=== PATIENT | female | born 1970 | race Caucasian/White ===

== ENCOUNTER 2021-09-23 15:56 | Inpatient (IN) | payer SELFPAY | END 2021-09-25 13:55 | disposition home or self-care (01) | DRG 373 | LOC: FMS 15:56 | PROVIDERS: ADMIT Internal Medicine | PROC: 0D9J3ZZ Drainage of Appendix, Percutaneous Approach (ICD-10-PCS; principal; 2021-09-24) | DX: K35.33 Acute appendicitis with perforation, localized peritonitis, and gangrene, with abscess (principal); D50.9 Iron deficiency anemia, unspecified; E88.09 Other disorders of plasma-protein metabolism, not elsewhere classified; Z20.822 Contact with and (suspected) exposure to COVID-19; F17.210 Nicotine dependence, cigarettes, uncomplicated; Z90.49 Acquired absence of other specified parts of digestive tract; Z98.890 Other specified postprocedural states; Z82.49 Family history of ischemic heart disease and other diseases of the circulatory system; Z90.12 Acquired absence of left breast and nipple ==

== ENCOUNTER → 2021-11-03 | Day surgery (SDC) | payer OTHER ==
[~2021-11-03] VITALS: Ht 177.8 cm; Wt 97.5 kg
[~2021-11-03] MED LIST: ACETAMINOPHEN500 M1 PO; AUGMENTIN 875-1 EACH PO; COLACE100 MG PO; IBUPROFEN800 MG PO; MOTRIN600 MG PO; NORCO 5-325 TA1 EACH PO; OXY-IR 5MG5 MG PO; POLY-IRON150 MG PO; ZOFRAN4 MG PO
[2021-11-03 10:20] LABS: HCT 40.7 % (37.0-47.0); HGB 13.4 g/dl (12.5-16.0); MCH 30.6 pg (25.0-31.0); MCHC 32.9 g/dL (32.0-36.0); MCV 92.9 fL (78.0-100.0); MPV 10.1 fL (6.0-9.5); RBC 4.38 M/uL (4.20-5.40); RDW 17.3 % (11.5-14.0); WBC 5.3 K/uL (4.0-10.5)
[2021-11-03 10:48] LABS: ALBUMIN 3.4 g/dL (3.4-5.0); BILIRUBIN - TOTAL 0.6 mg/dL (0.2-1.0); BUN/CREAT RATIO (CALC) 11.9 RATIO; CREATININE 0.59 mg/dL (0.51-0.95); GLOBULIN (CALCULATION) 3.4 g/dL; TOTAL PROTEIN 6.8 g/dL (6.4-8.2)
== END | disposition home or self-care (01) ==
LOC: FAS 08:49
PROVIDERS: Student in an Organized Health Care Education/Training Program
DX: K35.32 Acute appendicitis with perforation, localized peritonitis, and gangrene, without abscess (principal); K38.2 Diverticulum of appendix; K66.0 Peritoneal adhesions (postprocedural) (postinfection); F17.210 Nicotine dependence, cigarettes, uncomplicated
CPT/HCPCS: 36415; 80053; 87088; J1100; J1170; J1335; J1644; J2250; J2405; J2704; J2710; J3010; J7120